=== PATIENT | female | born 1980 | race Caucasian/White ===

== ENCOUNTER 2019-03-23 08:26 | Emergency (ER) | payer OTHER ==
--- NOTE | 2019-03-23 09:05 | ERPHSYRPT ---
- History of Present Illness Time Seen by Provider: 03/23/19 08:50 Source: patient Exam Limitations: no limitations Patient Subjective Stated Complaint: states woke up this am with dizziness. states is intermittent. also having some nausea Triage Nursing Assessment: to room per w/c, skin w/d, color normal, resp easy. able to get undressed per self and onto cot. 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 valadez without difficulty. a/o times four. richelle Physician History: 38 y/o diabetic white female smoker with htn presents with dizziness intermittently since this am. pt has been outside working in the heat the last 3 to 4 nights for 3 to 4 hours. pt sees spots and becomes nauseated. denies cp, soa and abd pain. never had before. denies head injury. Timing/Duration: today Severity: mild Character of Deficits: vision problems (sees spots) Baseline/Normal Cognition: alert 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 Current Cognition: alert 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 Baseline Gait: walks w/o assistance Associated Symptoms: nausea, vision changes, other (dizziness) Allergies/Adverse Reactions: levofloxacin [From Levaquin] Allergy (Verified 03/23/19 08:40) Home Medications: Atorvastatin Calcium [Lipitor] 80 mg PO DAILY 03/23/19 [History] Lisinopril 10 mg [Zestril 10 MG] 10 mg PO DAILY 03/23/19 [History] Metformin HCl 1,000 mg PO BID 03/23/19 [History] Metoprolol Tartrate [Lopressor] 100 mg PO DAILY 03/23/19 [History] Pioglitazone 30 mg [Actos 30 MG] 30 mg PO DAILY 03/23/19 [History] Venlafaxine HCl [Venlafaxine HCl ER] 150 mg PO DAILY 03/23/19 [History] Hx Tetanus, Diphtheria Vaccination/Date Given: No Hx Influenza Vaccination/Date Given: Yes Hx Pneumococcal Vaccination/Date Given: No - Review of Systems Constitutional: No Symptoms Eyes: Vision Changes Ears, Nose, & Throat: No Symptoms Respiratory: No Symptoms Cardiac: No Symptoms Abdominal/Gastrointestinal: No Symptoms Genitourinary Symptoms: No Symptoms Musculoskeletal: No Symptoms Skin: No Symptoms Neurological: Dizziness Psychological: No Symptoms Endocrine: No Symptoms Hematologic/Lymphatic: No Symptoms Immunological/Allergic: No Symptoms All Other Systems: Reviewed and Negative - Past Medical History Neurological History: Migraines Cardiac History: Arrhythmia, High Cholesterol, Hypertension Endocrine Medical History: Diabetes Type II Musculoskeletal History: Arthritis, Degenerative Disk Disease GI Medical History: Other - Past Surgical History Past Surgical History: Yes Female Surgical History: Tubal Ligation - Social History Smoking Status: Current every day smoker How long have you smoked: 22 Exposure to second hand smoke: No Drug Use: none Patient Lives Alone: No - Female History Hx Last Menstrual Period: three weeks ago Hx Now: No - Nursing Vital Signs Nursing Vital Signs: Initial Vital Signs Temperature 98.7 F 03/23/19 08:31 Pulse Rate 88 03/23/19 08:31 Respiratory Rate 16 03/23/19 08:31 Blood Pressure 135/71 03/23/19 08:31 O2 Sat by Pulse Oximetry 96 03/23/19 08:31 Pain Scale Pain Intensity 0 - [place] Com[place] Scale Best Eye Response (Le): (4) open spontaneously Best Verbal Response (Le): (5) oriented Best Motor Response (Le): (6) obeys commands [place] Total: 15 - Physical Exam General Appearance: mild distress, alert, anxiety Eye Exam: bilateral eye: normal inspection, PERRL, EOMI Ears, Nose, Throat Exam: normal ENT inspection, TMs normal, pharynx normal, moist mucous membranes Neck Exam: normal inspection, non-tender, supple, full range of motion Respiratory: normal breath sounds, lungs clear, airway intact, No chest tenderness, No respiratory distress Cardiovascular: regular rate/rhythm, normal heart sounds, normal peripheral pulses Gastrointestinal: soft, normal bowel sounds, No tenderness, No guarding Pelvic Exam: not done Rectal Exam: not done Back Exam: normal inspection, normal range of motion, No CVA tenderness, No vertebral tenderness Extremity Exam: normal inspection, normal range of motion, pelvis stable Mental Status: alert, 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, 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 Exam: normal hearing, normal speech, PERRL, tongue midline Coordination/Gait: normal finger to nose, normal gait, normal cerebellar function Motor/Sensory: no motor deficit, no sensory deficit, no pronator drift Skin Exam: normal color, warm, dry SpO2 Interpretation: normal SpO2: 96 O2 Delivery: Room Air - Course EKG Interpreted by Me: RATE (84), Sinus Rhythm, NORMAL AXIS, NORMAL INTERVALS, NORMAL QRS, Other (no comparison) Ordered Tests: Active Orders 24 hr Category Date Time Status Directory Compiler STAT Care 03/23/19 09:07 Active EKG-ER Only STAT Care 03/23/19 09:06 Active IV Insertion STAT Care 03/23/19 09:06 Active HEAD WITHOUT CONTRAST [CT] Stat Exams 03/23/19 09:07 Completed CBC W DIFF Stat Lab 03/23/19 09:00 Completed CMP Stat Lab 03/23/19 09:00 Completed TROPONIN Q3H Lab 03/23/19 09:00 Completed TROPONIN Q3H Lab 03/23/19 12:15 Ordered TROPONIN Q3H Lab 03/23/19 15:15 Ordered TROPONIN Q3H Lab 03/23/19 18:15 Ordered TROPONIN Q3H Lab 03/23/19 21:15 Ordered UA W/RFX UR CULTURE Stat Lab 03/23/19 09:07 Completed Medication Summary Generic Name Dose Route Start Last Admin Trade Name Freq PRN Reason Stop Dose Admin Sodium Chloride 1,000 mls @ 999 mls/hr 03/23/19 09:06 03/23/19 09:13 Sodium Chloride 0.9% 1000 Ml IV 03/23/19 10:06 999 mls/hr .Q1H1M STA Administration Meclizine HCl 25 mg 03/23/19 09:53 Antivert 25 Mg PO 03/23/19 09:54 STAT ONE Discontinued Medications Generic Name Dose Route Start Last Admin Trade Name Freq PRN Reason Stop Dose Admin Sodium Chloride Confirm 03/23/19 09:09 Sodium Chloride 0.9% 1000 Ml Administered 03/23/19 09:10 Dose 1,000 mls @ ud .ROUTE .STK-MED ONE Ondansetron HCl 4 mg 03/23/19 09:06 03/23/19 09:13 Zofran 4 Mg/2 Ml Vial IV 03/23/19 09:07 4 mg STAT ONE Administration Ondansetron HCl Confirm 03/23/19 09:09 Zofran 4 Mg/2 Ml Vial Administered 03/23/19 09:10 Dose 4 mg .ROUTE .STK-MED ONE Lab/Rad Data: Laboratory Result Diagrams 03/23/19 09:00 03/23/19 09:00 Laboratory Results 03/23/19 03/23/19 03/23/19 Range/Units 09:07 09:00 09:00 WBC (4.0-10.5) K/mm3 RBC (4.1-5.4) M/mm3 Hgb (12.0-16.0) gm/dl Hct (35-47) % MCV (78-100) fl MCH (26-32) pg MCHC (32-36) g/dl RDW (11.5-14.0) % Plt Count (150-450) K/mm3 MPV (6-9.5) fl Gran % (36.0-66.0) % Eos # (Auto) (0-0.5) Absolute Lymphs (auto) (1.0-4.6) Absolute Monos (auto) (0.0-1.3) Lymphocytes % (24.0-44.0) % Monocytes % (0.0-12.0) % Eosinophils % (0.00-5.0) % Basophils % (0.0-0.4) % Absolute Granulocytes (1.4-6.9) Basophils # (0-0.4) Sodium 137 (137-145) mmol/L Potassium 4.1 (3.5-5.1) mmol/L Chloride 105 (98-107) mmol/L Carbon Dioxide 22 (22-30) mmol/L Anion Gap 13.8 (5-15) MEQ/L BUN 10 (7-17) mg/dL Creatinine 0.38 L (0.52-1.04) mg/dL Estimated GFR > 60.0 ML/MIN Glucose 121 H (74-106) mg/dL Calcium 9.4 (8.4-10.2) mg/dL Total Bilirubin 0.60 (0.2-1.3) mg/dL AST 27 (14-36) U/L ALT 27 (0-35) U/L Alkaline Phosphatase 109 (38-126) U/L Troponin I < 0.012 (0.000-0.034) ng/mL Serum Total Protein 8.1 (6.3-8.2) g/dL Albumin 4.2 (3.5-5.0) g/dL Urine Color STRAW (YELLOW) Urine Appearance CLEAR (CLEAR) Urine pH 6.0 (5-6) Ur Specific [place] 1.002 (1.005-1.025) Urine Protein NEGATIVE (Negative) Urine Ketones NEGATIVE (NEGATIVE) Urine Blood NEGATIVE (0-5) Blake/ul Urine Nitrite NEGATIVE (NEGATIVE) Urine Bilirubin NEGATIVE (NEGATIVE) Urine Urobilinogen NEGATIVE (0-1) mg/dL Ur Leukocyte Esterase NEGATIVE (NEGATIVE) Urine WBC (Auto) 0-2 (0-5) /HPF Urine RBC (Auto) NONE (0-2) /HPF U Epithel Cells (Auto) RARE (FEW) /HPF Urine Bacteria (Auto) NONE (NEGATIVE) /HPF Urine Mucus (Auto) SLIGHT (NEGATIVE) /HPF Urine Culture Reflexed NO (NO) Urine Glucose NEGATIVE (NEGATIVE) mg/dL 03/23/19 Range/Units 09:00 WBC 11.3 H (4.0-10.5) K/mm3 RBC 4.74 (4.1-5.4) M/mm3 Hgb 13.4 (12.0-16.0) gm/dl Hct 41.3 (35-47) % MCV 87.1 (78-100) fl MCH 28.3 (26-32) pg MCHC 32.4 (32-36) g/dl RDW 14.6 H (11.5-14.0) % Plt Count 269 (150-450) K/mm3 MPV 10.9 H (6-9.5) fl Gran % 66.5 H (36.0-66.0) % Eos # (Auto) 0.27 (0-0.5) Absolute Lymphs (auto) 2.71 (1.0-4.6) Absolute Monos (auto) 0.79 (0.0-1.3) Lymphocytes % 23.9 L (24.0-44.0) % Monocytes % 7.0 (0.0-12.0) % Eosinophils % 2.4 (0.00-5.0) % Basophils % 0.2 (0.0-0.4) % Absolute Granulocytes 7.53 H (1.4-6.9) Basophils # 0.02 (0-0.4) Sodium (137-145) mmol/L Potassium (3.5-5.1) mmol/L Chloride (98-107) mmol/L Carbon Dioxide (22-30) mmol/L Anion Gap (5-15) MEQ/L BUN (7-17) mg/dL Creatinine (0.52-1.04) mg/dL Estimated GFR ML/MIN Glucose (74-106) mg/dL Calcium (8.4-10.2) mg/dL Total Bilirubin (0.2-1.3) mg/dL AST (14-36) U/L ALT (0-35) U/L Alkaline Phosphatase (38-126) U/L Troponin I (0.000-0.034) ng/mL Serum Total Protein (6.3-8.2) g/dL Albumin (3.5-5.0) g/dL Urine Color (YELLOW) Urine Appearance (CLEAR) Urine pH (5-6) Ur Specific [place] (1.005-1.025) Urine Protein (Negative) Urine Ketones (NEGATIVE) Urine Blood (0-5) Blake/ul Urine Nitrite (NEGATIVE) Urine Bilirubin (NEGATIVE) Urine Urobilinogen (0-1) mg/dL Ur Leukocyte Esterase (NEGATIVE) Urine WBC (Auto) (0-5) /HPF Urine RBC (Auto) (0-2) /HPF U Epithel Cells (Auto) (FEW) /HPF Urine Bacteria (Auto) (NEGATIVE) /HPF Urine Mucus (Auto) (NEGATIVE) /HPF Urine Culture Reflexed (NO) Urine Glucose (NEGATIVE) mg/dL - Progress Progress: improved Progress Note: 03/23/19 09:53 ct head-negative for acute process Counseled pt/family regarding: lab results, diagnosis, need for follow-up, rad results - Departure Departure Disposition: Home Clinical Impression: Dizziness Condition: Stable Critical Care Time: No Referrals: JOVAN HUMMEL [Primary Care Provider] - Additional Instructions: drinkk plenty of fluids. stay out of heat next 2 to 3 days. follow up with primary doctor for persistent symptoms. return to ED for worsening symptoms Prescriptions: Ondansetron ODT 4 MG [Zofran Odt 4 mg] 4 mg PO Q6H PRN PRN #10 tab.rapdis PRN Reason: Vomiting Meclizine HCl 25 mg [Antivert 25 mg] 25 mg PO Q8H PRN #10 tablet PRN Reason: Dizziness
[2019-03-23] MEDS ORDERED: Sodium Chloride 0.9% 1000 ML 1,000 ML IV STA (09:06)
[2019-03-23] MEDS ORDERED: Zofran 4 MG/2 ML VIAL IV ONE (09:06)
[2019-03-23] MEDS ORDERED: Zofran 4 MG/2 ML VIAL ONE (09:09)
[2019-03-23] MEDS ORDERED: Sodium Chloride 0.9% 1000 ML 1,000 ML ONE (09:09)
[2019-03-23 09:21] LABS: ALBUMIN 4.2 g/dL (3.5-5.0); ALKALINE PHOSPHATASE 109 U/L (38-126); ANION GAP 13.8 MEQ/L (5-15); BLOOD UREA NITROGEN 10 mg/dL (7-17); CHLORIDE 105 mmol/L (98-107); Calcium 9.4 mg/dL (8.4-10.2); Carbon Dioxide 22 mmol/L (22-30); Creatinine 1 0.38 mg/dL (0.52-1.04); Glucose 121 mg/dL (74-106); Potassium 4.1 mmol/L (3.5-5.1); SGOT/AST 27 U/L (14-36); SGPT/ALT 27 U/L (0-35); SODIUM 137 mmol/L (137-145); Total Protein 8.1 g/dL (6.3-8.2)
[2019-03-23 09:22] LABS: BASOPHIL % 0.2 % (0.0-0.4); Basophil (Absolute #) 0.02 (0-0.4); Eosinophil % 2.4 % (0.00-5.0); Eosinophil (Absolute #) 0.27 (0-0.5); Granulocyte Absolute (ANC) 7.53 (1.4-6.9); Granulocytes % 66.5 % (36.0-66.0); Hematocrit 41.3 % (35-47); Hemoglobin 13.4 gm/dl (12.0-16.0); Lymphocyte (Absolute #) 2.71 (1.0-4.6); Lymphocytes % 23.9 % (24.0-44.0); Mean Cell Volume 87.1 fl (78-100); Mean Corpuscular Hemoglobin 28.3 pg (26-32); Mean Corpuscular Hgb Concent. 32.4 g/dl (32-36); Mean Platelet Volume 10.9 fl (6-9.5); Monocyte (Absolute #) 0.79 (0.0-1.3); Platelet Count 269 K/mm3 (150-450); Red Blood Count 4.74 M/mm3 (4.1-5.4); Red Cell Distribution Width 14.6 % (11.5-14.0); White Blood Count 11.3 K/mm3 (4.0-10.5)
--- NOTE | 2019-03-23 09:32 | XRAY ---
Indication: Dizziness, headache, and visual changes. Multiple contiguous axial images obtained through the head without contrast. Comparison: None Normal appearing brain parenchyma, ventricles, and bony calvarium. Visualized paranasal sinuses and mastoid air cells are clear. Impression: Normal CT head without contrast exam. CT DI 70.38
[2019-03-23 09:40] VITALS: BP 122/83; PULSE 85
[2019-03-23 09:45] LABS: Appearance CLEAR (CLEAR); Bilirubin NEGATIVE (NEGATIVE); Blood NEGATIVE Ery/ul (0-5); Epithelial Cells RARE /HPF (FEW); Glucose NEGATIVE (NEGATIVE); Ketones NEGATIVE (NEGATIVE); Leukocyte Esterase NEGATIVE (NEGATIVE); Mucus SLIGHT /HPF (NEGATIVE); Nitrite NEGATIVE (NEGATIVE); Protein,Urine Dip NEGATIVE (Negative); Specific Gravity 1.002 (1.005-1.025); Urobilinogen NEGATIVE mg/dL (0-1); WBC 0-2 /HPF (0-5)
[2019-03-23] MEDS ORDERED: ANTIVERT 25 MG PO ONE (09:53)
[2019-03-23] MEDS ORDERED: ANTIVERT 25 MG ONE (09:59)
[2019-03-23 10:06] VITALS: O2SAT 95
== END 2019-03-23 10:54 | disposition home or self-care (01) ==
LOC: ED 08:26
DX: R42 Dizziness and giddiness (principal)
CPT/HCPCS: 36415; 70450; 80053; 81001; 84484; 85025; 93005; 93041; 96360; 96374; 99284; J2405; A9270-GY

== ENCOUNTER 2019-10-17 08:02 | Day surgery (SDC) | payer OTHER ==
[~2019-10-17 08:02] MED LIST: Lactated Ringers 1,000 ML IV SCH
--- NOTE | 2019-10-17 08:57 | HP ---
DATE OF SURGERY: 10/17/2019 HISTORY OF PRESENT ILLNESS: The patient is a 39 year-old with some dysphagia upper esophagus area. Ultrasound showed small nodule but not felt enough to be causing all of her dysphagia. She had recent fine needle aspiration removing specimen but inadequate for diagnosis. We discussed options of repeat biopsy of the thyroid at [place] or elsewhere to look at the thyroid, look at dysphagia. It was felt she would benefit from upper endoscopy, possible biopsy and possible dilatation. PAST MEDICAL HISTORY: Diabetes, hypertension. PAST SURGICAL HISTORY: Tubal ligation. Thermal ablation in the past. MEDICATIONS: Lisinopril, Lopressor, Klonopin, Effexor, Actos, Nucynta, Toprol. ALLERGIES: LEVOFLOXACIN. FAMILY HISTORY: Diabetes, deep venous thrombosis. SOCIAL HISTORY: Pack per day smoker, occasional alcohol use denies abuse. REVIEW OF SYSTEMS: Fourteen systems reviewed per admission assessment. Pertinent for the dysphagia. No chest pain or palpitations other systems negative or noncontributory as above and per preadmission questionnaire. PHYSICAL EXAMINATION: GENERAL: No acute distress. HEENT: Sclerae nonicteric. NECK: No JVD. CHEST: Equal excursion, nonlabored breathing. CVS: Regular rate and rhythm. ABDOMEN: Soft. EXTREMITIES: No significant edema. NEURO: Alert, oriented, moving extremities symmetrically. No gross motor deficits noted. IMPRESSION: Dysphagia unclear etiology. EGD possible biopsy, possible dilatation. Risks explained in detail including but not limited to bleeding or infection, risk of bowel injury or perforation possibly requiring open procedure, risk of missed or nondiagnosis or incomplete exam possibly requiring barium swallow, other studies or procedures. She understands the possibility that if dilatation is performed and it does improve her symptoms may need to repeat it down the road. She also understands the possibility dilatation may not improve her dysphagia, may be functional and neurologic rather than mechanical. She understands and agrees to the planned procedure and will proceed with EGD with possible biopsy possible dilatation. She could consider repeat biopsy of thyroid versus follow up down the road.
[2019-10-17] MEDS ORDERED: DIPRIVAN 200 MG/20 ML IV ONE ×3 (10:11→10:37)
[2019-10-17 12:14] VITALS: O2SAT 95
[2019-10-17 12:18] VITALS: BP 133/80; PULSE 98
--- NOTE | 2019-10-17 13:20 | OP ---
SURGERY DATE/TIME: 10/17/2019 1014 PREOPERATIVE DIAGNOSIS: Dysphagia. POSTOPERATIVE DIAGNOSES: 1) Minimal to mild gastritis. 2) Proximal esophageal narrowing and spasm requiring dilatation. PROCEDURES: 1) EGD with cold biopsy of the antrum to evaluate for Helicobacter pylori. 2) Proximal esophageal dilatation esophageal narrowing proximal esophagus (size 20 balloon). SURGEON: Dr. Scott Braun. ANESTHESIA: MAC. ESTIMATED BLOOD LOSS: Minimal. INDICATIONS: As noted above. Risks and benefits explained in detail and not limited to and consent obtained. DESCRIPTION OF PROCEDURE AND FINDINGS: The patient is taken to the operating room. MAC anesthesia introduced. After official time out and no disagreement with planned procedure, a bite block positioned. Video gastroscope easily passed in the oropharynx. There was some proximal esophageal narrowing and spasm. The scope was able to be passed through here but as she is having symptoms in this area it was felt it warranted dilatation. The scope is passed through the gastroesophageal junction noted about 40 cm through the patent pylorus to the junction of the second and third portion of the duodenum. Proximal duodenum and duodenal bulb were grossly unremarkable. The scope is pulled back into the stomach. She did have some mild gastric erythema whether just a little bit of gastropathy versus some early gastritis cold biopsy is taken to evaluate for Helicobacter pylori. On retroflex the gastroesophageal junction is fairly snug against the scope. There were no signs of any obvious ulcers, masses or other mucosal lesions. The scope was straightened and pulled back to gastroesophageal junction about 40 cm. Z-line was crisp. No signs of any obvious mass or chronic esophagitis. No evidence of Jerez's or any other esophageal mucosal lesion on careful withdrawal of the scope up to the narrowed area and spasm. There were no signs of any obvious masses or lesions to biopsy. Again, as she is having symptoms in this proximal esophageal narrowing and spasm area, it was felt she warranted a trial of dilatation. Therefore the scope is passed back down to the stomach. A 20 balloon catheter carefully inserted. Visualization of the stomach and pulled up to the proximal esophageal narrowing where it was carefully inflated first stage 40 seconds, second stage size 19 for 40 seconds and final stage size 20 for two minutes. Balloon catheter was then decompressed and the scope pulled through. Please see the anesthesia note as she had a little bronchospasm. She remained pink and viable the entire time but saturations did drop but then came back with some supplemental oxygen face mask. Please see anesthesia notes. Her saturations were in the upper 90's. I gave the okay to re-evaluate the area that was dilated. The scope much more easily passed through the proximal esophagus post-dilatation. The scope passed down in the stomach and gradually withdrawn. There were no signs of any full thickness issues or injury secondary to dilatation. Again, the proximal esophagus was much more widely patent. There were no immediate surgical complications. The patient tolerated the procedure well. The scope was withdrawn. Again, please see anesthesia notes. Findings discussed with the family out in the waiting area with recommendations to stop smoking. Go ahead and finish her liquids four hours and then advance diet as tolerated. I will see her back in the office next week.
== END 2019-10-17 11:25 | disposition home or self-care (01) ==
LOC: SDC 08:02
PROVIDERS: ATTEND Surgery
DX: K22.2 Esophageal obstruction (principal); K29.70 Gastritis, unspecified, without bleeding; K22.4 Dyskinesia of esophagus; R13.10 Dysphagia, unspecified; E11.9 Type 2 diabetes mellitus without complications; I10 Essential (primary) hypertension; Z79.899 Other long term (current) drug therapy
CPT/HCPCS: 82962; 88305; C1726; J2704

== ENCOUNTER 2019-10-31 07:30 | Emergency (ER) | payer OTHER ==
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
[2019-10-31 08:39] VITALS: O2SAT 98
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
[2019-10-31 09:16] VITALS: BP 139/91; PULSE 77
== END 2019-10-31 09:24 | disposition home or self-care (01) ==
LOC: ED 07:30
DX: S80.02XA Contusion of left knee, initial encounter (principal); S30.0XXA Contusion of lower back and pelvis, initial encounter; S20.229A Contusion of unspecified back wall of thorax, initial encounter; V89.2XXA Person injured in unspecified motor-vehicle accident, traffic, initial encounter; M25.562 Pain in left knee; M54.5 Low back pain; M54.6 Pain in thoracic spine; M54.9 Dorsalgia, unspecified; R07.9 Chest pain, unspecified; I10 Essential (primary) hypertension; Z79.899 Other long term (current) drug therapy; E78.00 Pure hypercholesterolemia, unspecified; E11.9 Type 2 diabetes mellitus without complications
CPT/HCPCS: 70450; 71045; 72125; 72128; 72131; 72170; 73130; 99284

== ENCOUNTER 2019-12-13 10:25 | Emergency (ER) | payer OTHER ==
--- NOTE | 2019-12-13 10:33 | XRAY ---
Indication: Fever, cough, short of breath. Comparison: [place] 2019. AP/lateral chest again demonstrates normal heart, lungs, and bony thorax with chronic right hemidiaphragm elevation. No new/acute findings.
--- NOTE | 2019-12-13 11:13 | ERPHSYRPT ---
- History of Present Illness Time Seen by Provider: 12/13/19 10:50 Source: patient Exam Limitations: no limitations Physician History: 39 years old female with history of hypertension, hyperlipidemia presented in the ER with chief complaint of nasal congestion, dry cough and low-grade fever of 100.5 sudden onset this morning. No difficulty breathing. Any history of travel, sick contact. Timing/Duration: today Cough Quality/Degree: mild, dry cough Possible Cause: no prior episodes Modifying Factors: Improves With: coughing Associated Symptoms: fever, chills, chest pain/soreness, cough International travel in last 2 weeks: No Allergies/Adverse Reactions: levofloxacin [From [employer]] Allergy (Verified 12/13/19 11:23) Home Medications: Lisinopril 10 mg [Zestril 10 MG] 10 mg PO DAILY 03/23/19 [History] Metoprolol Tartrate [Lopressor] 100 mg PO HS 03/23/19 [History] Pioglitazone 30 mg [Actos 30 MG] 30 mg PO DAILY 03/23/19 [History] Venlafaxine HCl [Venlafaxine HCl ER] 150 mg PO DAILY 03/23/19 [History] clonazePAM [Klonopin] 1 mg PO HS 09/28/19 [History] Atorvastatin Calcium [Lipitor] 80 mg PO DAILY 12/13/19 [History] Hx Tetanus, Diphtheria Vaccination/Date Given: No Hx Influenza Vaccination/Date Given: Yes Hx Pneumococcal Vaccination/Date Given: No Travel Risk - International Travel Have you traveled outside of the country in past 3 weeks: No Have you or anyone close to you been diagnosed with or: No Do your reside in a community with a known COVID-19 case?: No - Review of Systems Constitutional: Fever, Chills Eyes: No Symptoms Ears, Nose, & Throat: Nose Congestion Respiratory: Cough, No Wheezing Cardiac: No Symptoms Abdominal/Gastrointestinal: No Symptoms Genitourinary Symptoms: No Symptoms Musculoskeletal: Myalgias Skin: No Symptoms Neurological: Irritability Psychological: No Symptoms Endocrine: No Symptoms Hematologic/Lymphatic: No Symptoms Immunological/Allergic: No Symptoms - Past Medical History Pertinent Past Medical History: Yes Neurological History: No Pertinent History ENT History: No Pertinent History Cardiac History: Arrhythmia, High Cholesterol, Hypertension Respiratory History: No Pertinent History Endocrine Medical History: Diabetes Type II, Hypothyroidism Musculoskeletal History: Arthritis GI Medical History: Other History: No Pertinent History Psycho-Social History: No Pertinent History Female Reproductive Disorders: No Pertinent History Other Medical History: mass in liver unable to bx r/t location(monitored annually) - Past Surgical History Past Surgical History: Yes Neuro Surgical History: No Pertinent History Cardiac: No Pertinent History Respiratory: Other Gastrointestinal: No Pertinent History Genitourinary: No Pertinent History Musculoskeletal: No Pertinent History Female Surgical History: Tubal Ligation Other Surgical History: thyroid bx, endometrial ablation - Social History Smoking Status: Current every day smoker How long have you smoked: 22 Exposure to second hand smoke: No Drug Use: none Patient Lives Alone: No - Female History Hx Now: No - Nursing Vital Signs Nursing Vital Signs: Initial Vital Signs Temperature 97.9 F 12/13/19 11:11 Pulse Rate 94 H 12/13/19 11:11 Respiratory Rate 14 12/13/19 11:11 Blood Pressure 129/73 12/13/19 11:11 O2 Sat by Pulse Oximetry 98 12/13/19 11:11 Pain Scale Pain Intensity 7 - Physical Exam General Appearance: no apparent distress, alert, anxiety Eye Exam: PERRL/EOMI, eyes nml inspection Ears, Nose, Throat Exam: pharyngeal erythema Neck Exam: normal inspection, non-tender, supple, full range of motion Respiratory Exam: normal breath sounds, lungs clear, No chest tenderness Cardiovascular Exam: regular rate/rhythm, normal heart sounds, normal peripheral pulses Gastrointestinal/Abdomen Exam: soft, normal bowel sounds, No tenderness Back Exam: normal inspection Extremity Exam: normal inspection, normal range of motion Neurologic Exam: alert, 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, 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, 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 Skin Exam: normal color SpO2 Interpretation: normal O2 Delivery: Room Air - Course Nursing assessment & vital signs reviewed: Yes Ordered Tests: Active Orders 24 hr Category Date Time Status Isolation, Initiate & Maintain Q6H Care 12/13/19 09:15 Active Miscellaneous Nursing Order ROUTINE Care 12/13/19 09:15 Active Nursing [Miscellaneous Nursing Order] ROUTINE Care 12/13/19 09:[address] in Observation ROUTINE Care 12/13/19 09:15 Active Regular Diet Diet 12/13/19 Lunch Completed CHEST 2 VIEWS (PA AND LAT) Routine Exams 12/13/19 10:00 Completed BLOOD CULTURE Urgent Lab 12/13/19 10:45 Received CBC W DIFF Urgent Lab 12/13/19 10:45 Completed CMP Urgent Lab 12/13/19 10:45 Completed Erythrocyte Sedimentation Rate Urgent Lab 12/13/19 10:45 Completed Ferritin Urgent Lab 12/13/19 10:45 Completed TROPONIN Urgent Lab 12/13/19 10:45 Completed Oxygen Nasal Cannula 2 lpm RT 12/13/19 09:40 Active Medication Summary Discontinued Medications Generic Name Dose Route Start Last Admin Trade Name Kavonq PRN Reason Stop Dose Admin Acetaminophen 1,000 mg 12/13/19 11:22 12/13/19 11:26 Tylenol Extra Strength 500 Mg PO 12/13/19 11:23 1,000 mg STAT STA Administration Acetaminophen Confirm 12/13/19 11:21 Tylenol Extra Strength 500 Mg Administered 12/13/19 11:22 Dose 1,000 mg .ROUTE .[employer]-Medication Review ONE Lab/Rad Data: Laboratory Result Diagrams 12/13/19 10:45 12/13/19 10:45 Laboratory Results 12/13/19 12/13/19 12/13/19 Range/Units Unknown 10:45 10:45 WBC 10.9 H (4.0-10.5) K/mm3 RBC 4.98 (4.1-5.4) M/mm3 Hgb 14.3 (12.0-16.0) gm/dl Hct 43.6 (35-47) % MCV 87.6 (78-100) fl MCH 28.7 (26-32) pg MCHC 32.8 (32-36) g/dl RDW 14.6 H (11.5-14.0) % Plt Count 287 (150-450) K/mm3 MPV 10.6 (7.5-11.0) fl Gran % 63.8 (36.0-66.0) % Eos # (Auto) 0.30 (0-0.5) Absolute Lymphs (auto) 2.89 (1.0-4.6) Absolute Monos (auto) 0.72 (0.0-1.3) Lymphocytes % 26.6 (24.0-44.0) % Monocytes % 6.6 (0.0-12.0) % Eosinophils % 2.8 (0.00-5.0) % Basophils % 0.2 (0.0-0.4) % Absolute Granulocytes 6.92 H (1.4-6.9) Basophils # 0.02 (0-0.4) ESR 29 H (0-20) mm/hr Sodium 139 (137-145) mmol/L Potassium 3.8 (3.5-5.1) mmol/L Chloride 104 (98-107) mmol/L Carbon Dioxide 25 (22-30) mmol/L Anion Gap 13.7 (5-15) MEQ/L BUN 10 (7-17) mg/dL Creatinine 0.62 (0.52-1.04) mg/dL Estimated GFR > 60.0 ML/MIN Glucose 114 H (74-106) mg/dL Calcium 9.6 (8.4-10.2) mg/dL Ferritin 68.5 (6.24-137) ng/mL Total Bilirubin 0.50 (0.2-1.3) mg/dL AST 70 H (14-36) U/L ALT 86 H (0-35) U/L Alkaline Phosphatase 140 H (38-126) U/L Troponin I < 0.012 (0.000-0.034) ng/mL Serum Total Protein 8.6 H (6.3-8.2) g/dL Albumin 4.7 (3.5-5.0) g/dL Influenza Type A Ag NEGATIVE (NEGATIVE) Influenza Type B Ag NEGATIVE (NEGATIVE) RSV (PCR) NEGATIVE (Negative) Group A Strep Antibody NOT DETECTED (NEGATIVE) - Progress Progress: improved Air Movement: good Progress Note: 12/13/19 12:38 39 Years old is evaluated for fever, congestion and dry cough. She does not have a fever on presentation in the ER. She is not in any distress. She does not have a sick contact. No recent travel. Recommended social distancing and outpatient follow-up with employee health tomorrow and if is getting worse well get her evaluated for coronavirus. Discussed signs symptoms of worsening needing return to ER which she seems understanding. Stable for discharge. Blood Culture(s) Obtained: No Antibiotics given: No Counseled pt/family regarding: lab results, diagnosis, need for follow-up, rad results, smoking cessation - Departure Departure Disposition: Home Clinical Impression: URI with cough and congestion Condition: Stable Critical Care Time: No Referrals: BARB OLIVAREZ [Primary Care Provider] - (1-2 days for re evaluation ) Instructions: Viral Upper Respiratory Infection, Adult (DC), Cough, Adult (DC) Additional Instructions: Follow-up with employee health tomorrow for reevaluation. Follow-up with your primary care physician for reevaluation in 1 to 2 days. Use Tylenol as needed for fever greater than 100.4. Drink plenty of fluids. Stay home, follows social distance/droplet/contact precautions. Return to ER for any worsening.
[2019-12-13 11:21] LABS: Absolute Neutrophil Ct (ANC) 6.92 (1.4-6.9); BASOPHIL % 0.2 % (0.0-0.4); Basophil (Absolute #) 0.02 (0-0.4); Eosinophil % 2.8 % (0.00-5.0); Hematocrit 43.6 % (35-47); Hemoglobin 14.3 gm/dl (12.0-16.0); Lymphocyte (Absolute #) 2.89 (1.0-4.6); Lymphocytes % 26.6 % (24.0-44.0); Mean Cell Volume 87.6 fl (78-100); Mean Corpuscular Hemoglobin 28.7 pg (26-32); Mean Corpuscular Hgb Concent. 32.8 g/dl (32-36); Mean Platelet Volume 10.6 fl (7.5-11.0); Monocyte (Absolute #) 0.72 (0.0-1.3); Monocytes % 6.6 % (0.0-12.0); Neutrophil % 63.8 % (36.0-66.0); Platelet Count 287 K/mm3 (150-450); Red Blood Count 4.98 M/mm3 (4.1-5.4); Red Cell Distribution Width 14.6 % (11.5-14.0); White Blood Count 10.9 K/mm3 (4.0-10.5)
[2019-12-13] MEDS ORDERED: TYLENOL EXTRA STRENGTH 500 MG ONE (11:21)
[2019-12-13] MEDS ORDERED: TYLENOL EXTRA STRENGTH 500 MG PO STA (11:22)
[2019-12-13 11:23] VITALS: O2SAT 98
[2019-12-13 11:42] LABS: INFLUENZA A NEGATIVE (NEGATIVE); INFLUENZA B NEGATIVE (NEGATIVE); RESPIRATORY SYNCTIAL VIRUS NEGATIVE (Negative)
[2019-12-13 11:43] LABS: Erythrocyte Sedimentation Rate 29 mm/hr (0-20)
[2019-12-13 12:06] LABS: ALBUMIN 4.7 g/dL (3.5-5.0); ALKALINE PHOSPHATASE 140 U/L (38-126); ANION GAP 13.7 MEQ/L (5-15); BLOOD UREA NITROGEN 10 mg/dL (7-17); CHLORIDE 104 mmol/L (98-107); Calcium 9.6 mg/dL (8.4-10.2); Carbon Dioxide 25 mmol/L (22-30); Creatinine 1 0.62 mg/dL (0.52-1.04); Ferritin 68.5 ng/mL (6.24-137); Glucose 114 mg/dL (74-106); Potassium 3.8 mmol/L (3.5-5.1); SGOT/AST 70 U/L (14-36); SGPT/ALT 86 U/L (0-35); SODIUM 139 mmol/L (137-145); Total Protein 8.6 g/dL (6.3-8.2)
[2019-12-13 12:10] LABS: TROPONIN < 0.012 ng/mL (0.000-0.034)
[2019-12-13 12:40] VITALS: BP 121/79
[2019-12-13 12:45] VITALS: PULSE 76
== END 2019-12-13 12:48 | disposition home or self-care (01) ==
LOC: ED 10:25 → EDSTATUS 10:25 → ED 12:48
DX: J06.9 Acute upper respiratory infection, unspecified (principal); R05 Cough; R09.81 Nasal congestion; I10 Essential (primary) hypertension; E03.9 Hypothyroidism, unspecified; Z79.899 Other long term (current) drug therapy; E11.9 Type 2 diabetes mellitus without complications
CPT/HCPCS: 36415; 71046; 80053; 82728; 84484; 85025; 85652; 87040; 87631; 87651; 99284; A9270-GY

== ENCOUNTER 2024-03-21 21:07 | Emergency (ER) | payer BC ==
[2024-03-21 21:40] VITALS: TEMP 98.2; O2SAT 99
--- NOTE | 2024-03-21 21:47 | ERPHSYRPT ---
- History of Present Illness Time Seen by Provider: 03/21/24 21:12 Historian: patient Exam Limitations: no limitations Patient Subjective Stated Complaint: L sided abd pain that radiates to the R side, no vomiting or diarrhea Triage Nursing Assessment: pt ambulatory to bed by self with at bedside, pt alert and oriented x3, skin pwd, pt c/o L sided abd pain that radiates occasionally to the right side, pt denies any vomiting or diarrhea Physician History: 43-year-old female presented in the ER with complaints of left flank/left lower quadrant abdominal pain since 1 PM, reports comes and goes with a constant 3/10 intensity pain and when it gets worse it is 7/10. Some radiation to the left lower abdomen. No difficulty urination. Denies any associated nausea vomiting or diarrhea/constipation. Does have history of kidney stones in the past. No fever or chills reported. Allergies/Adverse Reactions: levofloxacin [From Levaquin] Allergy (Verified 03/21/24 21:30) Swelling of Tongue and Lips Home Medications: Metoprolol Tartrate [Lopressor] 100 mg PO HS 03/23/19 [History] Pioglitazone 30 mg [Actos 30 MG] 30 mg PO DAILY 03/23/19 [History] clonazePAM [Klonopin] 1 mg PO HS 09/28/19 [History] Trazodone HCl 150 mg PO HS 03/21/24 [History] Hx Tetanus, Diphtheria Vaccination/Date Given: Yes Hx Influenza Vaccination/Date Given: Yes Hx Pneumococcal Vaccination/Date Given: No Immunizations Up to Date: Yes Travel Risk - International Travel Have you traveled outside of the country in past 3 weeks: No - Emerging Infectious Disease Are you exhibiting symptoms associated with any current EIDs: Yes Symptoms: Abdominal Pain - Review of Systems Constitutional: No Symptoms Ears, Nose, & Throat: No Symptoms Respiratory: No Symptoms Cardiac: No Symptoms Abdominal/Gastrointestinal: Abdominal Pain Genitourinary Symptoms: No Symptoms Musculoskeletal: No Symptoms Skin: No Symptoms Neurological: No Symptoms Hematologic/Lymphatic: No Symptoms - Past Medical History Pertinent Past Medical History: Yes Neurological History: No Pertinent History ENT History: No Pertinent History Cardiac History: Arrhythmia, High Cholesterol, Hypertension Respiratory History: No Pertinent History Endocrine Medical History: Diabetes Type II Musculoskeletal History: Arthritis GI Medical History: Other History: No Pertinent History Psycho-Social History: No Pertinent History Female Reproductive Disorders: No Pertinent History Other Medical History: mass in liver unable to bx r/t location(monitored annually), SVT - Past Surgical History Past Surgical History: Yes Neuro Surgical History: No Pertinent History Cardiac: No Pertinent History Respiratory: Other Gastrointestinal: No Pertinent History Genitourinary: No Pertinent History Musculoskeletal: No Pertinent History Female Surgical History: Tubal Ligation Other Surgical History: thyroid bx, endometrial ablation. left hand - Female History Hx Last Menstrual Period: 03/20/24 Hx Now: No - Social History Smoking Status: Current every day smoker How long have you smoked: 25 Exposure to second hand smoke: No Drug Use: none Patient Lives Alone: No - Social Determinants of Health Do you worry about a steady place to live?: No Do you have any problems with any of the following?: No known problems In the past 12 months,have you had to go without utilities?: No Transportation Issues: No Has anyone in your support network made you feel unsafe?: No Have you or anyone in your house had to go without enough: No - Nursing Vital Signs Nursing Vital Signs: Initial Vital Signs Temperature 98.2 F 03/21/24 21:33 Pulse Rate 79 03/21/24 21:33 Respiratory Rate 18 03/21/24 21:33 Blood Pressure 158/104 03/21/24 21:33 O2 Sat by Pulse Oximetry 99 03/21/24 21:33 Pain Scale Pain Intensity 2 - Physical Exam General Appearance: no apparent distress Eye Exam: PERRL/EOMI Neck Exam: normal inspection Respiratory Exam: normal breath sounds, lungs clear Cardiovascular Exam: regular rate/rhythm, normal heart sounds Gastrointestinal/Abdomen Exam: soft, normal bowel sounds, tenderness (Left flank/left lower quadrant) Back Exam: normal inspection, normal range of motion Extremity Exam: normal inspection, normal range of motion Neurologic Exam: alert, 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, 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, 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 Skin Exam: normal color SpO2 Interpretation: normal SpO2: 99 O2 Delivery: Room Air Ordered Tests: Active Orders 24 hr Category Date Time Status IV Insertion STAT Care 03/21/24 21:45 Active NPO (ED) STAT Care 03/21/24 21:45 Active ABDOMEN AND PELVIS W/0 CONTRAS [CT] Stat Exams 03/21/24 22:06 Taken CBC W DIFF Stat Lab 03/21/24 21:55 Completed CMP Stat Lab 03/21/24 21:55 Completed HCG QUALITATIVE, SERUM Stat Lab 03/21/24 21:55 Completed LIPASE Stat Lab 03/21/24 21:55 Completed Lactic Acid Stat Lab 03/21/24 22:07 Completed UA W/RFX UR CULTURE Stat Lab 03/21/24 21:53 Completed Medication Summary Discontinued Medications Generic Name Dose Route Start Last Admin Trade Name Alex PRN Reason Stop Dose Admin Sodium Chloride 1,000 mls @ 999 mls/hr 03/21/24 21:45 03/21/24 21:59 Sodium Chloride 0.9% 1000 Ml IV 03/21/24 22:45 999 mls/hr .Q1H1M STA Administration Sodium Chloride Confirm 03/21/24 21:57 Sodium Chloride 0.9% 1000 Ml Administered 03/21/24 21:58 Dose 1,000 mls @ ud .ROUTE .STK[employer] ONE Ketorolac Tromethamine 30 mg 03/21/24 21:45 03/21/24 21:59 Ketorolac Tromethamine 30 Mg/Ml Inj IV 03/21/24 21:46 30 mg STAT ONE Administration Ketorolac Tromethamine Confirm 03/21/24 21:57 Ketorolac Tromethamine 30 Mg/Ml Inj Administered 03/21/24 21:58 Dose 30 mg .ROUTE .STK-MED ONE Lab/Rad Data: Laboratory Result Diagrams 03/21/24 21:55 03/21/24 21:55 Laboratory Results 03/21/24 03/21/24 03/21/24 Range/Units 22:07 21:55 21:55 WBC (3.98-10.04) x10^3/uL RBC (3.93-5.22) x10^6/uL Hgb (11.2-15.7) g/dL Hct (34.1-44.9) % MCV (79.4-94.8) fL MCH (25.6-32.2) pg MCHC (32.2-35.5) g/dL RDW (11.7-14.4) % Plt Count (182-369) x10^3/uL MPV (9.4-12.3) fL Gran % (34.0-71.1) % Immature Gran % (Auto) (0.001-0.429) % Nucleat RBC Rel Count (0.00-0.2) % Eos # (Auto) (0.04-0.36) x10^3/uL Immature Gran # (Auto) (0.001-0.031) x10^3u/L Absolute Lymphs (auto) (1.18-3.74) x10^3/uL Absolute Monos (auto) (0.24-0.86) x10^3/uL Absolute Nucleated RBC (0.00-0.012) x10^3u/L Lymphocytes % (19.3-51.7) % Monocytes % (4.7-12.5) % Eosinophils % (0.7-5.8) % Basophils % (0.1-1.2) % Absolute Granulocytes (1.56-6.13) x10^3/uL Basophils # (0.01-0.08) x10^3/uL Sodium 136 (135-145) mmol/L Potassium 3.6 (3.5-5.1) mmol/L Chloride 105 (98-107) mmol/L Carbon Dioxide 25 (22-30) mmol/L Anion Gap 9.1 (5-15) MEQ/L BUN 15 (7-17) mg/dL Creatinine 0.61 (0.52-1.04) mg/dL Estimated GFR 113.0 ML/MIN Glucose 120 H (74-106) mg/dL Lactic Acid 0.9 (0.4-2.0) Calcium 8.9 (8.4-10.2) mg/dL Total Bilirubin 0.40 (0.2-1.3) mg/dL AST 20 (14-36) U/L ALT 17 (0-35) U/L Alkaline Phosphatase 90 (38-126) U/L Serum Total Protein 6.8 (6.3-8.2) g/dL Albumin 3.8 (3.5-5.0) g/dL Lipase 212 (23-300) U/L Serum HCG, Qual NEGATIVE (NEGATIVE) Urine Color (Yellow) Urine Appearance (Clear) Urine pH (4.6-8.0) Ur Specific [place] (1.005-1.030) Urine Protein (Negative) Urine Glucose (UA) (Negative) mg/dL Urine Ketones (Negative) Urine Blood (Negative) Urine Nitrite (Negative) Urine Bilirubin (Negative) Urine Urobilinogen (0.2) mg/dL Ur Leukocyte Esterase (Negative) U Hyaline Cast (Auto) (0-2) /LPF Urine Microscopic RBC (0-5) /HPF Urine Microscopic WBC (0-5) /HPF Ur Epithelial Cells (None Seen) /HPF Urine Bacteria (None Seen) /HPF Urine Culture Reflexed (NO) 03/21/24 03/21/24 Range/Units 21:55 21:53 WBC 8.0 (3.98-10.04) x10^3/uL RBC 4.07 (3.93-5.22) x10^6/uL Hgb 11.8 (11.2-15.7) g/dL Hct 35.7 (34.1-44.9) % MCV 87.7 (79.4-94.8) fL MCH 29.0 (25.6-32.2) pg MCHC 33.1 (32.2-35.5) g/dL RDW 13.0 (11.7-14.4) % Plt Count 286 (182-369) x10^3/uL MPV 10.3 (9.4-12.3) fL Gran % 48.8 (34.0-71.1) % Immature Gran % (Auto) 0.3 (0.001-0.429) % Nucleat RBC Rel Count 0.0 (0.00-0.2) % Eos # (Auto) 0.27 (0.04-0.36) x10^3/uL Immature Gran # (Auto) 0.02 (0.001-0.031) x10^3u/L Absolute Lymphs (auto) 3.15 (1.18-3.74) x10^3/uL Absolute Monos (auto) 0.57 (0.24-0.86) x10^3/uL Absolute Nucleated RBC 0.00 (0.00-0.012) x10^3u/L Lymphocytes % 39.5 (19.3-51.7) % Monocytes % 7.2 (4.7-12.5) % Eosinophils % 3.4 (0.7-5.8) % Basophils % 0.8 (0.1-1.2) % Absolute Granulocytes 3.90 (1.56-6.13) x10^3/uL Basophils # 0.06 (0.01-0.08) x10^3/uL Sodium (135-145) mmol/L Potassium (3.5-5.1) mmol/L Chloride (98-107) mmol/L Carbon Dioxide (22-30) mmol/L Anion Gap (5-15) MEQ/L BUN (7-17) mg/dL Creatinine (0.52-1.04) mg/dL Estimated GFR ML/MIN Glucose (74-106) mg/dL Lactic Acid (0.4-2.0) Calcium (8.4-10.2) mg/dL Total Bilirubin (0.2-1.3) mg/dL AST (14-36) U/L ALT (0-35) U/L Alkaline Phosphatase (38-126) U/L Serum Total Protein (6.3-8.2) g/dL Albumin (3.5-5.0) g/dL Lipase (23-300) U/L Serum HCG, Qual (NEGATIVE) Urine Color Yellow (Yellow) Urine Appearance Cloudy A (Clear) Urine pH 7.0 (4.6-8.0) Ur Specific [place] 1.020 (1.005-1.030) Urine Protein Negative (Negative) Urine Glucose (UA) Negative (Negative) mg/dL Urine Ketones Negative (Negative) Urine Blood Negative (Negative) Urine Nitrite Negative (Negative) Urine Bilirubin Negative (Negative) Urine Urobilinogen 1.0 A (0.2) mg/dL Ur Leukocyte Esterase Negative (Negative) U Hyaline Cast (Auto) NONE SEEN (0-2) /LPF Urine Microscopic RBC 0-2 (0-5) /HPF Urine Microscopic WBC 0-2 (0-5) /HPF Ur Epithelial Cells None Seen (None Seen) /HPF Urine Bacteria None Seen (None Seen) /HPF Urine Culture Reflexed NO (NO) - Progress Progress: improved Progress Note: 03/21/24 23:05 43-year-old is evaluated in the ER for left flank/left lower quadrant pain. Patient is given fluids and symptomatic treatment. She has some tenderness to deep palpation but no guarding or rebound tenderness. She is given Toradol and feeling much better on reevaluation. Still have some mild pain there. Patient workup showed normal white count, fairly unremarkable chemistries and no UTI. CT abdomen pelvis without contrast per preliminary report showed left nonobstructing stone in the small left adrenal adenoma with no inflammatory/acute infectious process. I do not think patient pain symptoms are secondary to this nonobstructing stone. I do not know the exact cause of her pain but have ruled out all the major emergencies. Recommended taking Tylenol ibuprofen and outpatient follow-up. Discussed signs symptoms of worsening needing return to ER which she seems understanding. Stable for discharge. Counseled pt/family regarding: lab results, rad results Medical Desision Making - Diagnostic Testing Diagnostic test were ordered, analyzed, and reviewed by me: Yes Radiological Interpretation: Reviewed by me, Teleradiologist Report - Risk of complications The pt has a mod risk of morbidity or mortality based on: Need for prescription drug management - Departure Departure Disposition: Home Clinical Impression: Left flank pain, Adrenal adenoma Condition: Stable Critical Care Time: No Referrals: BARB OILVAREZ MD [Primary Care Provider] - Follow up with PCP 1 day Instructions: Severe Abdominal Pain, Adult (DC) Additional Instructions: Follow-up with primary care for reevaluation in 1 to 2 days. Take Ty lenol/ibuprofen as needed. Return to ER for intractable pain/vomiting/fever chills etc. Prescriptions: Ibuprofen 600 mg PO Q6HPRN PRN 10 Days #20 tablet PRN Reason: Pain
[2024-03-21] MEDS ORDERED: TORAdol 30 mg Injection ONE (21:57)
[2024-03-21] MEDS ORDERED: Sodium Chloride 0.9% 1000 ML 1,000 ML ONE (21:57)
[2024-03-21] MEDS: TORAdol 30 mg Injection IV ONE (21:59)
[2024-03-21] MEDS: Sodium Chloride 0.9% 1000 ML 1,000 ML IV STA (21:59)
[2024-03-21 22:03] LABS: BASOPHIL % 0.8 % (0.1-1.2); Basophil (Absolute #) 0.06 x10^3/uL (0.01-0.08); Eosinophil % 3.4 % (0.7-5.8); Eosinophil (Absolute #) 0.27 x10^3/uL (0.04-0.36); Hematocrit 35.7 % (34.1-44.9); Hemoglobin 11.8 g/dL (11.2-15.7); IMMATURE GRAN # 0.02 x10^3u/L (0.001-0.031); IMMATURE GRAN % 0.3 % (0.001-0.429); Lymphocyte (Absolute #) 3.15 x10^3/uL (1.18-3.74); Lymphocytes % 39.5 % (19.3-51.7); Mean Cell Volume 87.7 fL (79.4-94.8); Mean Corpuscular Hgb Concent. 33.1 g/dL (32.2-35.5); Mean Platelet Volume 10.3 fL (9.4-12.3); Monocyte (Absolute #) 0.57 x10^3/uL (0.24-0.86); Monocytes % 7.2 % (4.7-12.5); Neutrophil % 48.8 % (34.0-71.1); Platelet Count 286 x10^3/uL (182-369); Red Blood Count 4.07 x10^6/uL (3.93-5.22)
[2024-03-21 22:16] LABS: ALBUMIN 3.8 g/dL (3.5-5.0); ANION GAP 9.1 MEQ/L (5-15); BILIRUBIN,TOTAL 0.4 mg/dL (0.2-1.3); Calcium 8.9 mg/dL (8.4-10.2); Creatinine 1 0.61 mg/dL (0.52-1.04); Potassium 3.6 mmol/L (3.5-5.1); Total Protein 6.8 g/dL (6.3-8.2)
[2024-03-21 22:17] LABS: HCG SERUM TEST NEGATIVE (NEGATIVE)
[2024-03-21 22:43] LABS: Appearance Cloudy (Clear); Bacteria None Seen /HPF (None Seen); Bilirubin Negative (Negative); Blood Negative (Negative); Epithelial Cells None Seen /HPF (None Seen); Glucose, Urine Negative (Negative); Hyaline Casts NONE SEEN /LPF (0-2); Ketones Negative (Negative); Leukocyte Esterase Negative (Negative); Nitrite Negative (Negative); Protein,Urine Dip Negative (Negative); RBC 0-2 /HPF (0-5); WBC 0-2 /HPF (0-5)
[2024-03-21 22:44] LABS: ADD URINE CULTURE? NO (NO)
[2024-03-21 23:06] VITALS: BP 165/114; PULSE 66; RESP 17
--- NOTE | 2024-03-22 09:24 | XRAY ---
Indication: Left flank/left lower quadrant pain. Multiple contiguous axial images obtained through the abdomen and pelvis without contrast using renal stone protocol. Comparison: March 15, 2024 Lung bases demonstrates minimal dependent atelectasis. No infiltrate or effusion. Heart not enlarged. Grossly stable nonobstructing left renal micro-calculi. No new renal calculus or evidence for obstructive uropathy. Noncontrasted stomach and bowel loops appear nonobstructed again with normal appendix. Stable 1 cm left adrenal adenoma. No free fluid/air. Remaining liver, gallbladder, pancreas, spleen, adrenal glands, kidneys, ureters, bladder, and uterus are unremarkable for noncontrast exam. Again minimal aortoiliac calcifications without AAA. Impression: Stable nonobstructing left renal micro-calculi, small left adrenal adenoma, and arteriosclerotic disease. No new/acute findings on this noncontrast exam.
== END 2024-03-21 23:33 | disposition home or self-care (01) ==
LOC: ED 21:07
DX: R10.9 Unspecified abdominal pain (principal); D35.02 Benign neoplasm of left adrenal gland; R10.32 Left lower quadrant pain; E78.5 Hyperlipidemia, unspecified; I10 Essential (primary) hypertension; E11.9 Type 2 diabetes mellitus without complications; Z79.84 Long term (current) use of oral hypoglycemic drugs; Z79.899 Other long term (current) drug therapy; Z72.0 Tobacco use
CPT/HCPCS: 36000; 36415; 74176; 80053; 81001; 83605; 83690; 84703; 85025; 96360; 96374; 99284; J1885